=== PATIENT | female | born 1970 | race Caucasian/White ===

== ENCOUNTER 2018-06-25 08:34 | Outpatient (CLI) | payer OTHER ==
[2018-06-25] MEDS ORDERED: NEXIUM 24HR20 MG PO ×2 (13:33)
== END 2018-06-25 17:02 | disposition home or self-care (01) ==
LOC: NUCLEAR 08:34
DX: R00.0 Tachycardia, unspecified (principal); E66.01 Morbid (severe) obesity due to excess calories; Z01.810 Encounter for preprocedural cardiovascular examination

== ENCOUNTER 2018-06-25 09:46 | Outpatient (CLI) | payer OTHER ==
[2018-06-25] MEDS ORDERED: NEXIUM 24HR20 MG PO (13:33)
== END 2018-06-25 13:57 | disposition home or self-care (01) ==
LOC: MAMO-SONO 09:46
DX: R10.31 Right lower quadrant pain (principal); E66.01 Morbid (severe) obesity due to excess calories; R00.2 Palpitations

== ENCOUNTER 2018-06-25 11:04 | Day surgery (SDC) | payer OTHER ==
[2018-06-25] MEDS ORDERED: NEXIUM 24HR20 MG PO ×2 (13:33)
== END 2018-06-25 15:05 | disposition home or self-care (01) ==
LOC: AMB-ENDOS 11:04
DX: K29.60 Other gastritis without bleeding (principal); K44.9 Diaphragmatic hernia without obstruction or gangrene

== ENCOUNTER 2018-07-08 10:28 | Outpatient (CLI) | payer OTHER ==
[~2018-07-08 10:28] MED LIST: NEXIUM 24HR20 MG PO
== END 2018-07-08 10:37 | disposition home or self-care (01) ==
LOC: RX STUDY 10:28
DX: R10.13 Epigastric pain (principal); K21.9 Gastro-esophageal reflux disease without esophagitis